=== PATIENT | female | born 1945 | race Caucasian/White ===

== ENCOUNTER 2016-12-30 08:38 | Outpatient (CLI) | payer MEDICARE, OTHER ==
[2016-12-30] MEDS ORDERED: BARIUM SULFATE 1,900 ML BOTTLE PO ONE (12:00)
[2016-12-30] MEDS ORDERED: BARIUM SULFATE 1,900 ML BOTTLE PO SCH (12:00)
== END 2016-12-30 08:39 | disposition home or self-care (01) ==
DX: Z12.11 Encounter for screening for malignant neoplasm of colon (principal); K57.30 Diverticulosis of large intestine without perforation or abscess without bleeding
CPT/HCPCS: 74280; A9270

== ENCOUNTER 2017-05-30 15:10 | Outpatient (CLI) | payer MEDICARE, OTHER ==
--- NOTE | 2017-05-30 16:10 | XRAY Report ---
THREE-VIEW CERVICAL SPINE: 05/30/2017 CLINICAL INDICATION: Neck pain. COMPARISON: 01/15/2011 FINDINGS: AP, lateral, odontoid views of the cervical spine demonstrate progression of degenerative changes, with degenerative anterolisthesis of C4 on C5 by 4 mm. Degenerative disk disease has also p rogressed, with increased narrowing and osteophytes. There is no evidence of acute fracture. The pr evertebral soft tissues are unremarkable. IMPRESSION: PROGRESSION OF DEGENERATIVE CHANGES, WITH DEGENERATIVE ANTEROLISTHESIS OF C4 ON C5 BY 4 MM. JOB #: [id number] EXT JOB #:[id number]
--- NOTE | 2017-05-30 16:12 | XRAY Report ---
TWO VIEW THORACIC SPINE: 05/30/2017 CLINICAL INDICATION: Pain. FINDINGS: Frontal and lateral views of the thoracic spine demonstrate mild degenerative disk disease . There is no evidence of compression fracture. No paraspinal hematoma is seen. IMPRESSION: MILD DEGENERATIVE CHANGES. JOB #: [id number] EXT JOB #:[id number]
== END 2017-05-30 15:11 | disposition home or self-care (01) ==
LOC: DI.N 15:10
PROVIDERS: ATTEND Chiropractor
DX: M99.01 Segmental and somatic dysfunction of cervical region (principal); M99.02 Segmental and somatic dysfunction of thoracic region; M54.2 Cervicalgia
CPT/HCPCS: 72040; 72070

== ENCOUNTER 2017-07-11 10:45 | Outpatient (CLI) | payer MEDICARE, OTHER | END 2017-07-11 10:46 | disposition home or self-care (01) | LOC: LAB.WCP 10:45 | PROVIDERS: ATTEND Physician Assistant Medical | DX: J02.9 Acute pharyngitis, unspecified (principal) | CPT/HCPCS: 87070 ==

== ENCOUNTER 2018-02-17 14:56 | Outpatient (CLI) | payer MEDICARE, OTHER ==
[2018-02-17 19:35] LABS: BASOPHILS # (AUTO) 0.1 10^3/uL (0.0-0.1); EOSINOPHILS # (AUTO) 0.1 10^3/uL (0.0-0.7); EOSINOPHILS % (AUTO) 1.1 %; HGB - HEMOGLOBIN 13.8 g/dL (12.0-16.0); LYMPHOCYTES # (AUTO) 1.2 10^3/uL (1.5-3.5); LYMPHOCYTES % (AUTO) 22.4 %; MEAN CORPUSCULAR HEMOGLOBIN 32.4 pg (27.0-31.0); MEAN CORPUSCULAR HGB CONC 33.8 g/dL (32.0-36.0); MEAN CORPUSCULAR VOLUME 95.8 fL (81.0-99.0); MEAN PLATELET VOLUME 9.3 fL (7.9-10.8); MONOCYTES # (AUTO) 0.4 10^3/uL (0.0-1.0); MONOCYTES % (AUTO) 7.6 %; NEUTROPHILS # (AUTO) 3.7 10^3/uL (1.5-6.6); NEUTROPHILS % (AUTO) 67.9 %; PLT - PLATELET COUNT 177 10^3/uL (130-450); RED BLOOD COUNT 4.26 10^6/uL (4.20-5.40); RED CELL DISTRIBUTION WIDTH 13.5 % (12.0-15.0); WHITE BLOOD COUNT 5.5 x10^3/uL (4.8-10.8)
[2018-02-17 19:57] LABS: ALBUMIN 4.4 g/dL (3.2-5.5); ALBUMIN/GLOBULIN RATIO 1.5 (1.0-2.2); ALKALINE PHOSPHATASE 71 IU/L (42-121); ALT ALANINE AMINOTRANSFERASE 17 IU/L (10-60); AST ASPARTATE AMINOTRANSFERASE 18 IU/L (10-42); BILIRUBIN,TOTAL 0.4 mg/dL (0.2-1.0); BUN - BLOOD UREA NITROGEN 20 mg/dL (6-20); CALCIUM 9.3 mg/dL (8.5-10.3); CARBON DIOXIDE - CO2 28 mmol/L (21-32); CHLORIDE 104 mmol/L (101-111); CHOL/HDL RATIO 2.5 (<4.4); CHOLESTEROL 237 mg/dL; CREATININE 0.6 mg/dL (0.4-1.0); GFR - MDRD 99 (>89); GLUCOSE 135 mg/dL (70-100); HDL CHOLESTEROL 94 mg/dL; LDL CHOLESTEROL,CALCULATED 108 mg/dL; LDL/HDL RATIO 1.1 (<4.4); SODIUM 139 mmol/L (135-145); TOTAL PROTEIN 7.4 g/dL (6.7-8.2); VLDL CHOLESTEROL 35 mg/dL
[2018-02-17 20:37] LABS: HB2 TOTAL 15.5 g/dL; HEMOGLOBIN A1C 0.53 g/dL; HEMOGLOBIN A1C % 5.3 % (4.6-6.2)
[2018-02-19 14:33] LABS: HEPATITIS C ANTIBODY NON-REACTIVE (NON-REACTIVE)
== END 2018-02-17 14:57 | disposition home or self-care (01) ==
LOC: LAB.WCP 14:56
PROVIDERS: ATTEND Family Medicine
DX: E78.5 Hyperlipidemia, unspecified (principal); R73.01 Impaired fasting glucose; Z86.79 Personal history of other diseases of the circulatory system; Z11.59 Encounter for screening for other viral diseases
CPT/HCPCS: 36415; 80053; 80061; 83036; 83721; 84443; 85025; 86803

== ENCOUNTER 2018-02-23 09:47 | Outpatient (CLI) | payer MEDICARE, OTHER ==
--- NOTE | 2018-02-23 17:51 | MRI Report ---
EXAM: LEFT SHOULDER MRI WITHOUT CONTRAST EXAM DATE: 02/23/2018 11:01 AM. CLINICAL HISTORY: Left rotator cuff tear. COMPARISON: None. TECHNIQUE: Multiplanar, multisequence T1-weighted and fluid-sensitive sequences of the shoulder witho ut contrast. Other: None. FINDINGS: Acromioclavicular Region: The acromion is type II. AC joint is moderately osteoarthritic. The coracoa cromial and coracoclavicular ligaments are intact. A generous amount of fluid is seen in the bursa al zachary with some debris and loose bodies. Glenohumeral Region: No subluxation. Small joint effusion. The articular cartilage is unremarkable. T he glenohumeral ligaments and joint capsule are unremarkable. Bone Marrow: No fracture, marrow edema or bone lesions. Labrum: Small sublabral hole anteriorly. No labral pathology or labral tears. Musculature/Rotator Cuff: Full-thickness tear distal supraspinatus is outlined with joint fluid, this tear is about 7-8 mm. Adjacent infraspinatus shows significant increased T2 signal and is also somew hat thickened. No edema or fatty atrophy. Biceps Tendon: The long head of the biceps tendon and biceps sai are intact. Other: The subcutaneous tissues are unremarkable. IMPRESSION: 1. Type II unipartite undersurface osseous acromion shape. AC joint is moderately osteoarthritic. Quique e fluid is seen in the bursa, as well as in the glenohumeral joint with a generous amount of debris a nd loose bodies. 2. Small sublabral anterior labral hole, no labral pathology. 3. Full-thickness tear distal supraspinatus outlined with joint fluid measures about 7-8 mm. Tendinit is seen in the infraspinatus. Remainder of the tendon appears unremarkable. 4. Long head of biceps also appears normal. [facility] MUSCULOSKELETAL RADIOLOGY SECTION Referring Provider Line: [phone] SITE ID: [id number]
== END 2018-02-23 09:48 | disposition home or self-care (01) ==
LOC: DI 09:47
PROVIDERS: ATTEND Orthopaedic Surgery
DX: M75.102 Unspecified rotator cuff tear or rupture of left shoulder, not specified as traumatic (principal); M19.012 Primary osteoarthritis, left shoulder; M24.012 Loose body in left shoulder; M75.92 Shoulder lesion, unspecified, left shoulder; R94.31 Abnormal electrocardiogram [ECG] [EKG]
CPT/HCPCS: 93306

== ENCOUNTER 2018-02-23 09:53 | Outpatient (CLI) | payer MEDICARE, OTHER | END 2018-02-23 09:54 | disposition home or self-care (01) | LOC: DI 09:53 | PROVIDERS: ATTEND Family Medicine | DX: R94.31 Abnormal electrocardiogram [ECG] [EKG] (principal) | CPT/HCPCS: 93306 ==

== ENCOUNTER 2018-03-03 14:21 | Outpatient (CLI) | payer MEDICARE, OTHER ==
--- NOTE | 2018-03-08 17:13 | DEXA Report ---
DEXA: 03/03/2018 CLINICAL INDICATION: Postmenopausal. TECHNIQUE: Dual energy x-ray absorptiometry (DXA) was performed on a [employer] system. Regions measured are the AP spine, femoral neck, and, if needed, forearm. COMPARISON: None. In accordance with the International Society for Clinical Densitometry (ISCD) guidelines, data from previous exams may be reanalyzed using current recommendations and techniques. This is done to allow a more accurate basis for comparison with the current study. FINDINGS The data for the lumbar spine is as follows: REGION BMD (g/cm/cm) T-SCORE Z-SCORE L1 0.913 -1.8 -0.4 L2 0.874 -2.7 -1.3 L3 1.088 -0.9 0.5 L4 1.028 -1.4 0.0 L1-L4 0.987 -1.6 -0.2 NOTE: All evaluable vertebrae are used for classification. The data for the hip is as follows: REGION BMD (g/cm/cm) T-SCORE Z-SCORE Neck 0.827 -1.5 0.0 TOTAL 0.824 -1.5 -0.1 NOTE: The femoral neck or total proximal femur, whichever is lowest, is used for classification. IMPRESSION WHO CLASSIFICATION BASED ON THE INTERNATIONAL REFERENCE STANDARD IS OSTEOPENIA. FRACTURE RISK IS INCREASED. RECOMMENDATION: Patients with diagnosis of osteoporosis or osteopenia should have regular bone mineral density assessment. For those eligible for Medicare, routine testing is allowed once every 2 years. Testing frequency can be increased for patients who have rapidly progressing disease or for those who are receiving medical therapy to restore bone mass. COMMENT World Health Organization (WHO) definitions for osteoporosis and osteopenia: NORMAL BMD: T-score at 1.0 or higher, fracture risk is low. OSTEOPENIA BMD: T-score between 1.0 and -2.5, fracture risk is increased. OSTEOPOROSIS BMD: T-score at 2.5 or lower, fracture risk high. National Osteoporosis Foundation recommends: 1. Obtain adequate dietary calcium (at least 1200 mg per day) and vitamin D (400 -800 international units per day). 2. Participate, as appropriate, in regular weightbearing and muscle- strengthening exercise. 3. Avoid tobacco use and reduce alcohol and caffeine intake. 4. For more detailed information see the website at www.NOF.org. TD: 03/03/2018 17:36 MTDD
== END 2018-03-03 14:22 | disposition home or self-care (01) ==
LOC: DI 14:21
PROVIDERS: ATTEND Family Medicine
DX: M85.89 Other specified disorders of bone density and structure, multiple sites (principal)
CPT/HCPCS: 77080

== ENCOUNTER 2018-03-03 14:23 | Outpatient (CLI) | payer MEDICARE, OTHER ==
--- NOTE | 2018-03-04 14:12 | Mammography Report ---
DIGITAL SCREENING MAMMOGRAM: 03/03/2018 CLINICAL INDICATION: A 72-year-old with history of late childbearing, recent history of reduction mammoplasty for screening. COMPARISON: Prereduction films of 07/18/2016, 05/10/2015, 04/11/2014, 04/08/2013, 04/07/2012, 03/24/2012, 03/18/2011. TECHNIQUE: Routine CC and MLO projections were obtained of the breasts. FINDINGS: The breasts demonstrate heterogeneously dense fibroglandular parenchyma bilaterally. Post-reduction changes are present bilaterally. A few coarse, typically benign calcifications are present. No suspicious masses, clustered microcalcifications, or regions of architectural distortion are identified. IMPRESSION: BENIGN FINDINGS. RECOMMENDATION: Routine annual screening unless otherwise clinically indicated. BI-RADS CATEGORY 2 - BENIGN FINDINGS. STANDARD QUALIFYING STATEMENTS: 1. This examination was reviewed with the aid of Computer-Aided Detection (CAD). 2. A negative or benign imaging report should not delay biopsy if clinically suspicious findings are present. Consider surgical consultation if warranted. More than 5% of cancers are not identified by imaging. 3. Dense breasts may obscure an underlying neoplasm. TD: 03/04/2018 14:12
== END 2018-03-03 14:24 | disposition home or self-care (01) ==
LOC: DI 14:23
PROVIDERS: ATTEND Family Medicine
DX: Z12.31 Encounter for screening mammogram for malignant neoplasm of breast (principal)
CPT/HCPCS: 77067

== ENCOUNTER 2018-03-10 06:11 | Day surgery (SDC) | payer MEDICARE, OTHER ==
[2018-03-10] MEDS ORDERED: ceFAZolin 2 GM/50 ML 2 GM/50 ML BAG IV ONE (06:35)
[2018-03-10] MEDS ORDERED: ACETAMINOPHEN 1,000 MG/100 ML 100 ML IV ONE (06:35)
[2018-03-10] MEDS ORDERED: CELECOXIB 100 MG CAPSULE PO ONE (06:36)
[2018-03-10] MEDS ORDERED: LACTATED RINGERS 1,000 ML IV ONE (06:59)
[2018-03-10] MEDS ORDERED: DEXAMETHASONE 4 MG/ML VIAL ONE (07:15)
[2018-03-10] MEDS ORDERED: ROPIVACAINE 0.5% PF 20 ML AMPULE ONE (07:15)
[2018-03-10] MEDS ORDERED: ONDANSETRON 4 MG/2 ML VIAL IVP ONE (08:00)
[2018-03-10] MEDS ORDERED: fentaNYL 250 MCG/5 ML VIAL IVP ONE (08:00)
[2018-03-10] MEDS ORDERED: ePHEDrine 50 MG/ML VIAL IVP ONE (08:00)
[2018-03-10] MEDS ORDERED: ROCURONIUM 50 MG/5 ML VIAL IVP ONE (08:00)
[2018-03-10] MEDS ORDERED: MIDAZOLAM 2 MG/2 ML VIAL IVP ONE (08:00)
[2018-03-10] MEDS ORDERED: LIDOCAINE-MPF 2% 5 ML VIAL IM ONE (08:00)
[2018-03-10] MEDS ORDERED: PROPOFOL 200 MG/20 ML VIAL IVP ONE (08:00)
[2018-03-10 11:08] VITALS: BP 123/74
--- NOTE | 2018-03-10 23:21 | OPERATIVE REPORT ---
DATE OF SERVICE: 03/10/2018 Physician: Torsten Vee MD PREOPERATIVE DIAGNOSIS: Left shoulder rotator cuff tear and impingement. POSTOPERATIVE DIAGNOSIS: Left shoulder rotator cuff tear and impingement. PROCEDURE PERFORMED: Left shoulder exam under anesthesia, arthroscopy with subacromial decompression and bursectomy followed by open limited incision rotator cuff repair. SURGEON: Torsten Vee MD. ANESTHESIA: General and block by Ksenia Butterfield CRNA. INDICATIONS FOR SURGERY: Ute is a 72-year-old female post-injury of her left shoulder with subsequent shoulder pain and MRI documentation of a full thickness rotator cuff tear. The patient had failed a nonoperative course with continued severe pain and popping in her shoulder and surgery was recommended. FINDINGS AT SURGERY: The patient's exam under anesthesia showed a prominent catching sensation under the anterior acromial arch on range of motion. The patient's arthroscopic glenohumeral exam was remarkable for a very frayed supraspinatus insertion site with detachment of the cuff evident across the entire supraspinatus footprint. The patient's biceps was intact and labral tissues and ligamentous tissues. Articular cartilage was essentially normal on the glenoid and humeral head. The biceps anchor was intact. The patient's bursa was extremely inflamed and prone to bleeding with a type 2 acromion with a fairly sharp leading edge. The cuff tear as viewed at open surgery was a crescent shaped tear of the entire supraspinatus retracted 1 cm. The remaining tissues were healthy. OPERATIVE PROCEDURE: The patient was taken to the operating room, given a general anesthetic. She was positioned beach chair. Her shoulder was sterilely prepped and draped in standard fashion. Arthroscopy was undertaken and the findings noted above. A careful exam was made of the glenohumeral joint and the surface energy tip was used to control bleeding. The scope was then positioned subacromial were bursectomy and decompression were performed and a careful inspection of the torn rotator cuff more clearly seen subacromial than that had been in the shoulder proper. Upon control of bleeding and decompression, it was elected to proceed to open repair as the patient had had a tendency to be quite bloody during the arthroscopic phase. A 3 inch lateral incision was made directly through the lateral portal site and with no takedown of deltoid, simple splitting, the underlying cuff was exposed and the further bursectomy performed. The rotator cuff was mobilized and a decompressed area was made at its footprint on the tuberosity. The Fastin suture anchor was placed in the bone with appropriate sutures for repair to a lateral Versalok and with these sutures anchored in place and tied down at the medial aspect, a double row repair was made by gathering those sutures and using a Versalok laterally. This gained excellent fixation of the tendon and allowed an anatomic buddhism of the repair. The area was flushed and irrigated thoroughly. The deltoid was reattached with Orthocord and bone tunnels, and subcutaneous tissue closed with Vicryl, skin with Monocryl and dressings being a silver containing dressing applied to the wound itself, followed by an overwrap of ABDs and a compression dressing. The patient was placed in a sling and taken to the recovery room in stable condition. ESTIMATED BLOOD LOSS: Minimal. COMPLICATIONS: None. COUNTS: Sponge and needle counts correct. TD: 03/10/2018 15:32
== END 2018-03-10 06:12 | disposition home or self-care (01) ==
LOC: SDS 06:11
PROVIDERS: ATTEND Orthopaedic Surgery
PROC: 0LM20ZZ Reattachment of Left Shoulder Tendon, Open Approach (ICD-10-PCS; 2018-03-10)
PROC: 0RBK4ZZ Excision of Left Shoulder Joint, Percutaneous Endoscopic Approach (ICD-10-PCS; principal; 2018-03-10 07:30)
DX: S46.012A Strain of muscle(s) and tendon(s) of the rotator cuff of left shoulder, initial encounter (principal); M75.42 Impingement syndrome of left shoulder; Z87.891 Personal history of nicotine dependence
CPT/HCPCS: 23412; 29822; A9270; C1713; J0131; J0690; J3010; J7120